=== PATIENT | male | born 1990 | race African-American/Black ===

== ENCOUNTER 2022-02-18 12:29 | Emergency (ER) | payer OTHER ==
[~2022-02-18] VITALS: Ht 185.4 cm; Wt 122.0 kg
[2022-02-18] MEDS ORDERED: IBUPROFEN 600MG TABLET PO STA (14:28)
[2022-02-18] MEDS ORDERED: NAPR-681 PO (14:46)
[2022-02-18 15:34] VITALS: BP 134/76
== END 2022-02-18 15:42 | disposition home or self-care (01) ==
LOC: ER 12:29
DX: M25.561 Pain in right knee (principal)
CPT/HCPCS: 73562; 99283